=== PATIENT | male | born 1950 ===

== ENCOUNTER → 2019-09-09 | Outpatient (CLI) | payer OTHER ==
[2019-09-09 10:15] VITALS: BP 140/94
[2019-09-09 10:59] LABS: CSF PROTEIN 75.9 mg/dL (15.0-45.0)
[2019-09-09 11:00] VITALS: BP 146/87
--- NOTE | 2019-09-09 11:10 | NUR ---
pt A&O x 3. denies pain , nausea or dizziness. bandaid on back site is clean and dry. d/c instructions reviewed and questions answered. ambulated w/o problem. ambulated out to vehicle accompanied by his .
[2019-09-09 11:21] LABS: CSF CLARITY CLEAR; CSF COLOR COLORLESS; CSF RBC COUNT 0 /cmm (Not Established); CSF WBC COUNT 0 /cmm (Not Established)
--- NOTE | 2019-09-09 11:32 | RAD ---
Fluoroscopically Guided Lumbar Puncture for CSF Sampling: Clinical History: headache. Procedure: The relative benefits, risks and alternatives to the procedure were discussed and verbal written informed consent was obtained. The patient was placed prone on the fluoroscopic table and bony landmarks were used to plan for a lumbar puncture. The left L3-L4 interlaminar space was selected entry. The patient was carefully prepped and draped in a sterile fashion and with local anesthetic and sterile technique, a 22-gauge needle was advanced at the L3-L4 level. Clear CSF was seen and approximately 18 cc of clear fluid was aspirated and sent for testing. Opening pressure measured 6 cm of water. The procedure was well tolerated and the patient was sent to Recovery in good condition. Patient was later sent home in good condition with instructions to contact physician should if developed signs or symptoms of pain, bleeding or infection. The patient was also encouraged to drink of oral fluids to decrease chances of having a spinal headache. Total patient fluoro time: 0.3 minutes. Impression: Status post fluoroscopic guided lumbar puncture for spinal tap. Opening pressure was 6 cm of water. 18ml of clear spinal fluid were collected. Electronically signed by: Dhiraj Abreu MD (09/09/2019 11:30 AM) [id number]
== END | disposition home or self-care (01) ==
LOC: RAD 08:31
PROVIDERS: ATTEND Psychiatry & Neurology Neurology with Special Qualifications in Child Neurology
DX: G93.2 Benign intracranial hypertension (principal)
CPT/HCPCS: 62270; 62328; 82945; 84157; 89051